=== PATIENT | female | born 1940 ===

== ENCOUNTER 2018-11-08 14:18 | Emergency (ER) | payer MEDICARE ==
[2018-11-08 14:26] VITALS: O2SAT 98
--- NOTE | 2018-11-08 15:52 | C.PDOC ---
History Of Present Illness CC: Dizziness HPI: Patient is an 78 year old [place]ese-speaking female who presents to the ED for dizziness. Patient reports 1 week history of intermittent episodes of dizziness that come and go on their own, worse with neck flexion, with no relieving factors, accompanied by head congestion and a mild headache (which she attributes to not eating today). Saw PMD Dr. Ridley today 11/08/2018 and was referred to the ED for evaluation of progressively worsening vertigo. She admits to feeling tired recently, but unable to provide further details. She denies history of similar vertigo symptoms, recent trauma over the past 1 week, acute changes in hearing or vision (has chronic L sided hearing loss--being evaluated outpatient), nausea or vomiting. Patient also reports 3 falls between July to October of this year, after which she developed problems with occasional dizziness/headaches. Exact history of these symptoms is unclear and difficult to obtain from patient and family. Patient ambulates with a cane at home. History obtained from: patient, family members at bedside, medical record. ROS: denies: fever, chest pain, abdominal pain, nausea, vomiting, diarrhea, constipation, dysuria, leg pain. PMH: DM, glaucoma, arthritis PSH: cataract surgery Social hx: Walks with cane at home, Home meds: Meclizine 25mg, Glipizide 10mg, Metformin 750mg PO BID, Travatan opthalmic drops Allergies: NKDA PMD: Iker Ridley plant technical specialist: Dr. Daniel Seymour ENT: Dr. Jose Torres <Van Wilkins - Last Filed: 11/08/18 18:16> <Ervin Morin M - Last Filed: 11/08/18 17:24> <Van Wilkins - Last Filed: 11/08/18 18:16> Time Seen by Provider: 11/08/18 14:45 Chief Complaint (Nursing): Dizziness/Lightheaded Past Medical History Vital Signs: Last Vital Signs Temp 97.5 F L 11/08/18 14:23 Pulse 80 11/08/18 14:23 Resp 20 11/08/18 14:23 BP 156/75 H 11/08/18 14:23 Pulse Ox 98 11/08/18 16:00 <Ervin Morin - Last Filed: 11/08/18 17:24> Vital Signs: Last Vital Signs Temp 97.5 F L 11/08/18 14:23 Pulse 80 11/08/18 14:23 Resp 20 11/08/18 14:23 BP 156/75 H 11/08/18 14:23 Pulse Ox 98 11/08/18 14:23 - Medical History PMH: Diabetes Family History: States: Unknown Family Hx - Social History Hx Tobacco Use: No Hx Alcohol Use: No Hx Substance Use: No - Immunization History Hx Tetanus Toxoid Vaccination: No Hx Influenza Vaccination: No Hx Pneumococcal Vaccination: No <Van Wilkins - Last Filed: 11/08/18 18:16> Review Of Systems Constitutional: Negative for: Fever, Chills, Weakness Eyes: Negative for: Pain ENT: Positive for: Other (Chronic left sided hearing loss ) Cardiovascular: Negative for: Chest Pain, Palpitations Respiratory: Negative for: Cough, Shortness of Breath Gastrointestinal: Negative for: Nausea, Vomiting, Abdominal Pain, Constipation Genitourinary: Negative for: Dysuria Musculoskeletal: Negative for: Neck Pain, Back Pain Neurological: Positive for: Dizziness. Negative for: Weakness, Numbness, Change in Speech <Van Wilkins - Last Filed: 11/08/18 18:16> Physical Exam - Physical Exam Appears: Well, Non-toxic, No Acute Distress Skin: Warm, Dry Head: Atraumatic, Normacephalic Eye(s): left: Normal Inspection, Other (Right eye: cataract. Left pupil: slightly sluggish to light. ) Ear(s): Left: Other (chronic left sided hearing loss ) Nose: Normal, No Discharge, No Tenderness Oral Mucosa: Moist Tongue: Normal Appearing Lips: Normal Appearing Throat: Normal, No Drooling Neck: Normal, No Midline Cervical Tenderness, No Paracervical Tenderness Lymphatic: No Adenopathy Cardiovascular: Rhythm Irregular, No Murmur Respiratory: Normal Breath Sounds, No Accessory Muscle Use, No Rhonchi, No Stridor, No Wheezing Gastrointestinal/Abdominal: Normal Exam, Bowel Sounds, Soft, No Tenderness Back: No CVA Tenderness, No Vertebral Tenderness, No Paraspinal Tenderness Extremity: Normal ROM, No Tenderness, No Pedal Edema, No Calf Tenderness, No Swelling Neurological/Psych: Oriented x3, Normal Speech, Normal Cognition, Normal Cranial Nerves, Normal Motor, Normal Sensation, Normal Reflexes <Van Wilkins - Last Filed: 11/08/18 18:16> ED Course And Treatment - Laboratory Results Result Diagrams: 11/08/18 16:11 11/08/18 16:11 <Ervin Morin - Last Filed: 11/08/18 17:24> - Laboratory Results Result Diagrams: 11/08/18 16:11 11/08/18 16:11 O2 Sat by Pulse Oximetry: 98 <Van Wilkins - Last Filed: 11/08/18 18:16> Medical Decision Making Medical Decision Making: ekg - nsr at rate of 65 bpm with 1st degree block, nrm axis, no st or twave abn. <Ervin Morin - Last Filed: 11/08/18 17:24> Medical Decision Making: CT head: nonspecific white matter changes. Tiny right basal ganglia lacunar infarct. 1720: On repeat evaluation, patient stated that her dizziness had improved with Meclizine. Patient requested that she be discharged home with medications. She stated she did not want to undergo further testing at this time. <Van Wilkins - Last Filed: 11/08/18 18:16> Disposition Counseled Patient/Family Regarding: Studies Performed, Diagnosis, Need For Followup, Rx Given - Disposition Disposition Time: 17:25 <Ervin Morin - Last Filed: 11/08/18 17:24> <Van Wilkins - Last Filed: 11/08/18 18:16> - Disposition Referrals: Lori Walton MD [Staff Provider] - Iker Ridley APN [Non-Staff] - Disposition: HOME/ ROUTINE Condition: STABLE Additional Instructions: you are refusing hospital admission and therefore assuming responsibility of your care you are welcome to return to hospital at anytime my staff and I can't be responsible for potential negative outcome as a result of your refusal to stay this is including irreversible outcome and follow up with your doctor and neurologist immediately Prescriptions: Meclizine [Meclizine*] 25 mg PO TID PRN #15 tab PRN Reason: Dizziness Instructions: Vertigo (a Type of Dizziness) Forms: [facility] (Al[place]ian), General Discharge Instructions - Clinical Impression Clinical Impression: Dizziness
[2018-11-08 16:13] LABS: BASO # 0.1 K/uL (0.0-0.2); BASO % 0.9 % (0.0-2.0); EOS # 0.3 K/uL (0.0-0.7); EOS % 3.5 % (0.0-4.0); HEMOGLOBIN 13.6 g/dL (11.0-16.0); LYMPH # 1.9 K/uL (1.0-4.3); LYMPH % 25.6 % (20.0-40.0); MEAN CELL VOLUME 87.2 fL (81.0-99.0); MEAN CORPUSCULAR HEMOGLOBIN 29.4 pg (27.0-31.0); MEAN CORPUSCULAR HGB CONC 33.7 g/dL (33.0-37.0); MONO # 0.3 K/uL (0.0-0.8); MONO % 4.2 % (0.0-10.0); NEUT # 4.9 K/uL (1.8-7.0); NEUT % 65.8 % (50.0-75.0); RBC 4.61 Mil/uL (3.80-5.20); WHITE BLOOD COUNT 7.5 K/uL (4.8-10.8)
--- NOTE | 2018-11-08 16:25 | CT ---
Date of service: 11/08/2018 PROCEDURE: CT HEAD WITHOUT CONTRAST. HISTORY: dizziness COMPARISON: Noncontrast head CT performed 11/06/15 TECHNIQUE: Axial computed tomography images were obtained through the head/brain without intravenous contrast. Radiation dose: Total exam DLP = 915.01 mGy-cm. This CT exam was performed using one or more of the following dose reduction techniques: Automated exposure control, adjustment of the mA and/or kV according to patient size, and/or use of iterative reconstruction technique. FINDINGS: HEMORRHAGE: No intracranial hemorrhage. BRAIN: Diffuse atrophy with prominence of the ventricles and sulci noted. No mass effect or edema. Tiny approximately 2 mm lacunar type infarct, right basal ganglia. Scattered white matter hypodensities, which are nonspecific, but often seen with chronic microvascular ischemic disease. Please note that MRI with diffusion imaging is more sensitive in the detection of acute ischemic event. VENTRICLES: No hydrocephalus. CALVARIUM: Unremarkable. PARANASAL SINUSES: Partially imaged opacification of the right maxillary sinus. MASTOID AIR CELLS: Unremarkable as visualized. No inflammatory changes. OTHER FINDINGS: Postsurgical changes, right globe. IMPRESSION: Nonspecific white matter changes. Tiny right basal ganglia lacunar type infarct.
[2018-11-08 16:29] LABS: ALB/GLOB RATIO 1.3 (1.0-2.1); ALT/SGPT 30 U/L (9-52); AST/SGOT 23 U/L (14-36); BLOOD UREA NITROGEN 17 mg/dL (7-17); CALCIUM 9.7 mg/dl (8.6-10.4); GFR NON-AFRICAN AMERICAN > 60; PROTHROMBIN TIME 10.8 SECONDS (9.7-12.2)
[2018-11-08 16:43] LABS: SQUAMOUS EPITHIAL < 1 /hpf (0-5); URINE BACTERIA RARE (<OCC); URINE BILIRUBIN NEGATIVE (NEGATIVE); URINE BLOOD 1+ (NEGATIVE); URINE CLARITY Clear (Clear); URINE COLOR Straw (YELLOW); URINE GLUCOSE (UA) NORMAL (Normal); URINE LEUKOCYTE ESTERASE NEG Leu/uL (Negative); URINE PROTEIN NEGATIVE (NEGATIVE); URINE UROBILINOGEN NORMAL mg/dL (0.2-1.0)
[2018-11-08 17:39] VITALS: BP 145/70; PULSE 84; RESP 18; TEMP 97.9
--- NOTE | 2018-11-08 18:21 | RAD ---
HISTORY: dizziness COMPARISON: Chest x-ray images performed 06/18/12 TECHNIQUE: Chest, one view. FINDINGS: LUNGS: Hyperinflation may be seen in the setting of COPD. No focal consolidation. Please note that chest x-ray has limited sensitivity for the detection of pulmonary masses. PLEURA: No significant pleural effusion identified. No definite pneumothorax . CARDIOVASCULAR: Mild cardiomegaly. Atherosclerotic calcification present. OSSEOUS STRUCTURES: Osseous demineralization. Degenerative changes. VISUALIZED UPPER ABDOMEN: Unremarkable. OTHER FINDINGS: None. IMPRESSION: Hyperinflation may be seen in the setting of COPD. Mild cardiomegaly.
--- NOTE | 2018-11-11 10:17 | CARD ---
APPROVED REPORT Date of service: 11/08/2018 EKG Measurement Heart [id number] <Conclusion> Sinus rhythm with 1st degree AV block Otherwise normal ECG
== END 2018-11-08 17:38 | disposition home or self-care (01) ==
LOC: C.ER 14:18
DX: R42 Dizziness and giddiness (principal); E11.9 Type 2 diabetes mellitus without complications